=== PATIENT | female | born 1985 | race Caucasian/White ===

== ENCOUNTER 2017-05-06 00:54 | Emergency (ER) | payer BC, MEDICAID ==
[~2017-05-06] VITALS: Ht 149.9 cm; Wt 66.8 kg
[2017-05-06 00:59] VITALS: BP 131/85; PULSE 105; RESP 20; TEMP 97.7; O2SAT 100
[2017-05-06 01:45] LABS: BILIRUBIN, URINE NEG (NEG); BLOOD, URINE NEG (NEG); GLUCOSE,URINE NEG (NEG); KETONE, URINE NEG (NEG); NITRITE,URINE NEG (NEG); PH, URINE 5.5 (5.0-8.5); URINE COLOR YELLOW (YELLW/STRAW); URINE LEUKOCYTE ESTERASE NEG (NEG)
[2017-05-06 01:48] LABS: BACTERIA, URINE RARE /hpf; RBC, URINE 0-2 /hpf (0-3); SQUAMOUS EPITHELIAL CELL URINE 0-5 /hpf (0-5); WBC, URINE 0-2 /hpf (0-5)
[2017-05-06] MEDS ORDERED: PNV11TAB PO (02:17)
[2017-05-06] MEDS ORDERED: SODIUM CHLORIDE 0.9% FLUSH 10 ML FLUSH IVF PRN (02:30)
--- NOTE | 2017-05-06 02:35 | PD ---
HPI Chief Complaint: Cardiac Complaint Time Seen by Provider: 02:29 Travel History International Travel<30 days: No Contact w/Intl Traveler<30days: No Traveled to known affect area: No History of Present Illness HPI The patient is a 32-year-old female that complains of heart racing when she was in bed. She said her legs got stiff and where shaking and she felt that fast heartbeat but it subsided for about 5 minutes and came back again. For the past 2 days she has had chest pain which is sharp and pleuritic. She denies any fever. She denies any history of heart disease. She comes from [place] and has no local physician. She does not smoke, have diabetes, elevated cholesterol , hypertension and has no other major medical problems. She has had a tubal ligation. She is currently breast-feeding. [facility] Past Medical History Medical History: Denies Significant Hx Tetanus Vaccination: > 5 Years Influenza Vaccination: No ?: Not LMP: "I'M " : 4 Para: 3 : 1 Tubal Ligation: Yes (JAN 2017) Past Surgical History Section: Yes (X3) Social History Alcohol Use: Yes ("SOCIALLY") Tobacco Use: No Substance Use: No Allergies-Medications (Allergen,Severity, Reaction): Coded Allergies: No Known Allergies (Unverified , 05/06/17) Reported Meds & Prescriptions Reported Meds & Active Scripts Active Reported Gummies (Wat092/FA/Omega3/Dha/Fish Oil) 400 Mcg-32.5 Mg (25 Mg-7.5 Mg) Tab.chew 2 Chew PO DAILY Review of Systems Except as stated in HPI: all other systems reviewed are Neg Physical Exam Narrative GENERAL: Well-nourished, well-developed patient in no apparent distress. Her vital signs show heart rate of 105 and blood pressure 131/85 but the rest of vital signs are normal. SKIN: Focused skin assessment warm/dry. No skin rash is seen. HEAD: Normocephalic. EYES: No scleral icterus. No injection or drainage. NECK: Supple, trachea midline. No JVD or lymphadenopathy. CARDIOVASCULAR: Regular rate and rhythm without murmurs, gallops, or rubs. RESPIRATORY: Breath sounds equal bilaterally. No accessory muscle use. Lungs clear to auscultation bilaterally. GASTROINTESTINAL: Abdomen soft, non-tender, nondistended. MUSCULOSKELETAL: No cyanosis, or edema. BACK: Nontender without obvious deformity. No CVA tenderness. Data Data Last Documented VS Vital Signs Date Time Temp Pulse Resp B/P (MAP) Pulse Ox O2 Delivery O2 Flow Rate FiO2 05/06/17 02:38 88 16 110/65 (80) 99 Room Air 05/06/17 00:59 97.7 Orders Orders Urinalysis - C+S If Indicated (05/06/17 01:37) Electrocardiogram (05/06/17 02:30) Basic Metabolic Panel (Bmp) (05/06/17 02:30) Complete Blood Count With Diff (05/06/17 02:30) Magnesium (Mg) (05/06/17 02:30) Troponin I (05/06/17 02:30) Ecg Monitoring (05/06/17 02:30) Iv Access Insert/Monitor (05/06/17 02:30) Oximetry (05/06/17 02:30) Oxygen Administration (05/06/17 02:30) Sodium Chloride 0.9% Flush (Ns Flush) (05/06/17 02:30) Thyroid Stimulating Hormone (05/06/17 02:30) Labs Laboratory Tests Test 05/06/17 01:42 05/06/17 02:30 Urine Color YELLOW Urine Turbidity CLEAR Urine pH 5.5 Urine Specific [place] LESS/EQUAL 1.005 Urine Protein NEG mg/dL Urine Glucose (UA) NEG mg/dL Urine Ketones NEG mg/dL Urine Occult Blood NEG Urine Nitrite NEG Urine Bilirubin NEG Urine Urobilinogen 0.2 MG/DL Urine Leukocyte Esterase NEG Urine RBC 0-2 /hpf Urine WBC 0-2 /hpf Urine Squamous Epithelial Cells 0-5 /hpf Urine Bacteria RARE /hpf Microscopic Urinalysis Comment CULT NOT INDICATED White Blood Count 6.1 TH/MM3 Red Blood Count 4.84 MIL/MM3 Hemoglobin 14.2 GM/DL Hematocrit 43.0 % Mean Corpuscular Volume 88.9 FL Mean Corpuscular Hemoglobin 29.3 PG Mean Corpuscular Hemoglobin Concent 32.9 % Red Cell Distribution Width 12.7 % Platelet Count 131 TH/MM3 Mean Platelet Volume 9.6 FL Neutrophils (%) (Auto) 58.1 % Lymphocytes (%) (Auto) 30.7 % Monocytes (%) (Auto) 5.0 % Eosinophils (%) (Auto) 5.5 % Basophils (%) (Auto) 0.7 % Neutrophils # (Auto) 3.6 TH/MM3 Lymphocytes # (Auto) 1.9 TH/MM3 Monocytes # (Auto) 0.3 TH/MM3 Eosinophils # (Auto) 0.3 TH/MM3 Basophils # (Auto) 0.0 TH/MM3 CBC Comment DIFF FINAL Differential Comment Blood Urea Nitrogen 17 MG/DL Creatinine 0.71 MG/DL Random Glucose 98 MG/DL Calcium Level 8.5 MG/DL Magnesium Level 2.0 MG/DL Sodium Level 139 MEQ/L Potassium Level 3.6 MEQ/L Chloride Level 110 MEQ/L Carbon Dioxide Level 22.8 MEQ/L Anion Gap 6 MEQ/L Estimat Glomerular Filtration Rate 97 ML/MIN Troponin I LESS THAN 0.02 NG/ML Thyroid Stimulating Hormone 3rd Gen 2.670 uIU/ML MDM Medical Decision Making Medical Screen Exam Complete: Yes Emergency Medical Condition: Yes Medical Record Reviewed: Yes Interpretation(s) The EKG shows sinus rhythm with a rate of [address] elevation or depression. The urinalysis is normal except for rare bacteria and culture is not indicated. The CBC is normal except for 131,000 platelets. The basic metabolic profile is normal and the troponin I is less than 0.02. Differential Diagnosis Chest wall pain, chest pain etiology undetermined, atypical chest pain, acute coronary syndrome-unlikely, PAT, other cardiac dysrhythmia Narrative Course The patient had a tachycardia that did not compromise blood flow. She did not get syncopal or near syncopal episodes during the fast heart rate. Her chest pain is atypical. Impression: Atypical chest pain, tachycardia Diagnosis Primary Impression: Atypical chest pain Additional Impression: Tachycardia Additional Instructions: As we discussed, if you get another episode of the fast heartbeat: Ambulance. They can record her rhythm. You do not have to go with them to the hospital but at least her rhythm will be recorded. Med/Other Pt SpecificInfo: No Change to Meds Disposition: 01 DISCHARGE HOME Condition: Stable Víctor Taveras MD May 06, 2017 02:35
[2017-05-06 02:38] VITALS: BP 110/65; PULSE 88; RESP 16; O2SAT 99
[2017-05-06 02:42] LABS: AUTOMATED NEUTROPHIL # 3.6 TH/MM3 (1.8-7.7); BASOPHIL % 0.7 % (0.0-2.0); EOSINOPHIL # 0.3 TH/MM3 (0-0.4); EOSINOPHIL % 5.5 % (0.0-4.0); HEMOGLOBIN 14.2 GM/DL (11.6-15.3); LYMPH % 30.7 % (9.0-44.0); LYMPHOCYTE # 1.9 TH/MM3 (1.0-4.8); MEAN CELL VOLUME 88.9 FL (80.0-100.0); MEAN CORPUSCULAR HEMOGLOBIN 29.3 PG (27.0-34.0); MEAN CORPUSCULAR HGB CONC 32.9 % (32.0-36.0); MEAN PLATELET VOLUME 9.6 FL (7.0-11.0); MONOCYTE # 0.3 TH/MM3 (0-0.9); NEUT % 58.1 % (16.0-70.0); PLATELET COUNT 131 TH/MM3 (150-450); RED BLOOD COUNT 4.84 MIL/MM3 (4.00-5.30); RED CELL DISTRIBUTION WIDTH 12.7 % (11.6-17.2); WHITE BLOOD COUNT 6.1 TH/MM3 (4.0-11.0)
[2017-05-06 02:49] LABS: CHLORIDE 110 MEQ/L (98-107); SODIUM (NA) 139 MEQ/L (136-145)
[2017-05-06 02:51] LABS: CALCIUM 8.5 MG/DL (8.5-10.1)
[2017-05-06 02:52] LABS: BICARBONATE 22.8 MEQ/L (21.0-32.0); BLOOD UREA NITROGEN 17 MG/DL (7-18); GLUCOSE,RANDOM 98 MG/DL (74-106)
[2017-05-06 02:55] LABS: CREATININE 0.71 MG/DL (0.50-1.00); GLOMERULAR FILTRATION RATE 97 ML/MIN (>89)
[2017-05-06 03:00] LABS: TROPONIN I LESS THAN 0.02 NG/ML (0.02-0.05)
[2017-05-06 03:52] VITALS: BP 120/68
--- NOTE | 2017-05-06 11:12 | EKG ---
Date Performed: 05/06/2017 Time Performed: 01:06:37 PTAGE: 32 years EKG: Sinus rhythm LOW QRS VOLTAGE IN PRECORDIAL LEADS BORDERLINE ECG NO PREVIOUS TRACING DOCTOR: Grzegorz Wheeler Interpretating Date/Time 05/06/2017 11:11:30
== END 2017-05-06 03:55 | disposition home or self-care (01) ==
LOC: PHED 00:54
DX: R07.89 Other chest pain (principal); R00.0 Tachycardia, unspecified
CPT/HCPCS: 80048; 81001; 83735; 84443; 84484; 85025; 93005; 99284